=== PATIENT | female | born 1990 | race Caucasian/White ===

== ENCOUNTER 2016-08-01 10:35 | Outpatient (CLI) | payer OTHER ==
[~2016-08-01] VITALS: Ht 172.7 cm; Wt 88.0 kg
[~2016-08-01 10:35] MED LIST: DOCU100C37 PO; IBUP-1780 PO; NITR100C10 PO; ONDN4T PO; OXYC-465 PO; PREN1TAB79 PO; PROM25TA14 PO
[2016-08-01 10:45] VITALS: BP 118/76
[2016-08-01] MEDS ORDERED: PREN-37 PO (10:53)
[2016-08-01] MEDS ORDERED: FLU TRIvalent (5 YOA+) 2016-17 (AFLURIA) 0.5 ML IM ONE (11:15)
[2016-08-01 11:16] LABS: BILIRUBIN,URINE NEGATIVE (NEGATIVE); KETONES,URINE NEGATIVE (NEGATIVE); LEUKOCYTE ESTERASE ,URINE 3+ (NEGATIVE); NITRITE,URINE NEGATIVE (NEGATIVE); PH,URINE 6.5 (5-9); PROTEIN,URINE 1+ (NEGATIVE); UROBILINOGEN,URINE NORMAL (NORMAL)
[2016-08-01 11:38] LABS: SQUAMOUS EPITHELIAL CELL,UR 25-50 /HPF
--- NOTE | 2016-08-01 11:55 | Progress Note-Standard ---
Standard Progress Note Progress Notes/Assess & Plan Progress/Assessment & Plan Patient seen today in L and D triage for 3 day complaint of vaginal leakage of fluid. Denies VB, Ctxs. Reports + FM. No other concerns voiced today. Patient gives no history of PTL or delivery. Vital Sign - Last 24 Hours 08/01/16 10:45 Temp 97.2 Pulse 104 Resp 18 B/P (MAP) 118/76 O2 Delivery Room Air Laboratory Tests Test 08/01/16 11:00 Range/Units Urine Color YELLOW Urine Clarity SLIGHTLY CLOUDY Urine pH 6.5 5-9 Urine Specific [place] 1.015 L 1.016-1.022 Urine Protein 1+ H NEGATIVE Urine Glucose (UA) NEGATIVE NEGATIVE Urine Ketones NEGATIVE NEGATIVE Urine Nitrite NEGATIVE NEGATIVE Urine Bilirubin NEGATIVE NEGATIVE Urine Urobilinogen NORMAL NORMAL MG/DL Urine Leukocyte Esterase 3+ H NEGATIVE Urine RBC (Auto) NEGATIVE NEGATIVE Urine RBC RARE /HPF Urine WBC 10-25 H /HPF Urine Squamous Epithelial Cells 25-50 H /HPF Urine Crystals NONE /LPF Urine Bacteria MODERATE H /HPF Urine Casts NONE /LPF Urine Mucus SMALL H /LPF Urine Culture Indicated NO SVE: closed/ thick/ -3 Nitrazine negative + clue cells on wet prep NST reactive: BL 135 moderate variability + accels no decels, no contractions Diagnosis: 25 yo @ 32 weeks Bacterial vaginosis Vaginal discharge P: Treating patient with Flagyl 500 mg BID x 5 days Keep scheduled follow up with Dr. Park PTL precautions reviewed. VIKAS PLATT DO Aug 01, 2016 11:55 am
[2016-09-11] MEDS ORDERED: DOCU-143 PO (21:04)
[2016-09-11] MEDS ORDERED: IBUP-1773 PO (21:04)
== END 2016-08-01 11:35 | disposition home or self-care (01) ==
LOC: DELPENDDIS → LDRP 10:35 → WSo 10:35
PROVIDERS: ATTEND Obstetrics & Gynecology
DX: O99.89 Other specified diseases and conditions complicating pregnancy, childbirth and the puerperium (principal); N76.0 Acute vaginitis; Z3A.32 32 weeks gestation of pregnancy
CPT/HCPCS: 81000; 87088; 87210; 99214

== ENCOUNTER 2016-08-21 09:57 | Outpatient (CLI) | payer OTHER ==
[~2016-08-21] VITALS: Ht 172.7 cm; Wt 90.3 kg
[2016-08-21 09:45] VITALS: BP 124/73
[~2016-08-21 09:57] MED LIST changes: +PREN-37 PO
[2016-08-21] MEDS ORDERED: AMPICILLIN INJECTION 2,000 MG in NS (IVPB) 50 ML IV SCH (10:01)
[2016-08-21] MEDS ORDERED: BETAMETHASONE ACE/NA PHOS 6 MG/ML (CELESTONE SOLUSPAN) ONE (10:02)
[2016-08-21] MEDS ORDERED: AMPICILLIN 2000 MG INJECTION (IM/IV) ONE (10:03)
[2016-08-21] MEDS ORDERED: NS (IVPB) 50 ML ONE (10:04)
[2016-08-21] MEDS ORDERED: BETAMETHASONE ACE/NA PHOS 6 MG/ML (CELESTONE SOLUSPAN) IM SCH (10:08)
[2016-08-21] MEDS ORDERED: LACTATED RINGERS 1,000 ML IV ONE (10:15)
[2016-08-21] MEDS ORDERED: fluCOnazole (DIFLUCAN) 100 MG TAB PO NR (10:19)
[2016-08-21 10:35] VITALS: BP 118/70
[2016-08-21] MEDS ORDERED: LACTATED RINGERS 1,000 ML IV SCH (11:30)
--- NOTE | 2016-08-21 11:52 | Diagnostic Imaging Report ---
INDICATION: possible leaking fluid COMPARISON: None available.. Biophysical Profile Score: Movement: 2 Breathin Tone: 2 Fluid: 2 Total: 12/10 Heart Rate: 132 BPM Presentation is cephalic. Placenta is anterior in location. PRESTON is 9.8cm. The single largest vertical pocket is 3.0 cm. IMPRESSION: Normal Biophysical Profile Score. Dictated by: Dictated on workstation # [id number]
--- NOTE | 2016-08-21 12:50 | History & Physical-OB ---
OB - Chief Complaint & HPI Date Date of Admission: Date of Admission: Chief Complaint/History OB-Reason for Admission/Chief: Hx : 2 Hx Para: 1 Expected Date of Delivery: October 01, 2016 Gestational Age in Weeks: 34 Gestational Age in Days: 1 Other reason for admission: Cass is a 26 y/o @ 34w1d here for contractions, advanced cervical dilatation, r/o PTL. Cass reports for the past week she's noted painful contractions. They were especially painful last night. She then had a gush of fluid as though her water broke (had this about 2 weeks ago and was r/o for rupture and dx with BV by instructional support specialist physician). No bleeding. Fetus is active. c/b GBSuria, otherwise uncomplicated. Last delivery was IOL @ 38 wga. History of Labs O+ Antibody neg RI Hep B/C neg/neg RPR NR GC/CT neg/neg HIV neg GBSuria Allergies and Home Medications Allergies Coded Allergies: Sulfa (Sulfonamide Antibiotics) (Unverified Allergy, Mild, RASH, 12/29/14) Home Medications Vit/Iron Fumarate/FA 1 Each Tablet, 1 EACH PO DAILY, (Reported) OB - History Hx of Present Care: Yes Ultrasounds: Normal mid trimester US Obstetrical Complications: Other (GBSuria) Medical Complications: None Information Induced Hypertension: Yes (first delivery reports BP was elevated) Maternal Gestational Diabetes: No Hemorrhage: No Obstetrical History Hx : 2 Hx Para: 1 Delivery History Hx Blood Disorders: No Patient Past Medical History non-contributory Social History/Family History HIV/AIDS: No Recent Infectious Disease Expo: No Sexually Transmitted Disease: No Alcohol Use: Denies Use Recreational Drug Use: No Smoking Cessation: Never smoker Immunizations Hepatitis A: No Hepatitis B: No Tetanus Booster (TDap): Less than 5yrs Rubella: immune RPR/VDRL: Negative GBS Status: Positive HBsAG: Negative OB - Admission Exam Physical Exam Vitals: Vital Signs 08/21/16 09:45 Temp 97.6 Pulse 106 Resp 18 B/P (MAP) 124/73 Pulse Ox 98 O2 Delivery Room Air HEENT: NCAT Heart: Rhythm Normal Lungs: Clear Abdomen: Gravid Extremities: Normal Reflexes: Normal Cervical Dilatation: 3cm Effacement: 75% Station: -2 Membranes: Intact Heart Rate: 140's Accelerations: Accelerations Present Decelerations: No Decelerations Short Term Variability: Present Contractions on Admission: None OB - Assessment/Plan/Diagnosis Plan Other Plan 26 y/o @ 34w1d with contractions, advanced cervical dilatation, threatened labor. GBSuria SVE in clinic around 0930 - /-2, no change from that exam at 1230. Will stop IVF (given a bolus and then maintenance fluids), allow Cass to eat. Stop ampicillin (was started on admission) Received BTMZ at 1015. If discharged, will make appt for her to receive second dose tomorrow. Will recheck SVE in a couple hours - if no change and no pain, allow to d/c home with strict return precautions. She is aware of GBS+ status and need to treat that. BPP 8/8 (10cm PRESTON), not ruptured on exam in clinic today, did not repeat SSE on hospitalization KERWIN AVALOS MD Aug 21, 2016 12:50
[2016-08-21] MEDS ORDERED: AMPICILLIN INJECTION 1,000 MG in NS (IVPB) 50 ML IV SCH (14:15)
[2016-09-11] MEDS ORDERED: IBUP-1773 PO (21:04)
[2016-09-11] MEDS ORDERED: DOCU-143 PO (21:04)
== END 2016-08-21 15:45 | disposition home or self-care (01) ==
LOC: WSo 09:57 → LDRP 09:58 → WSo 15:45
PROVIDERS: ATTEND Obstetrics & Gynecology
DX: O47.03 False labor before 37 completed weeks of gestation, third trimester (principal); O99.820 Streptococcus B carrier state complicating pregnancy; Z3A.34 34 weeks gestation of pregnancy
CPT/HCPCS: 76805; 76819; 96361; 96372; 96374; 99214

== ENCOUNTER 2016-09-05 18:45 | Outpatient (CLI) | payer OTHER ==
[~2016-09-05] VITALS: Ht 172.7 cm; Wt 90.9 kg
[2016-09-05 19:13] VITALS: BP 123/83
[2016-09-05 20:18] LABS: BILIRUBIN,URINE NEGATIVE (NEGATIVE); KETONES,URINE NEGATIVE (NEGATIVE); LEUKOCYTE ESTERASE ,URINE 3+ (NEGATIVE); NITRITE,URINE NEGATIVE (NEGATIVE); PH,URINE 7 (5-9); PROTEIN,URINE NEGATIVE (NEGATIVE); UROBILINOGEN,URINE NORMAL (NORMAL)
[2016-09-05 20:26] LABS: WBC,URINE 25-50 /HPF
[2016-09-05] MEDS ORDERED: CEPH-507 PO (20:35)
--- NOTE | 2016-09-06 13:15 | Physician Query-Final Dx ---
JC DECKER 09/06/16 1315: Clinic Account Progress/Dx Physician Query: Please give diagnosis Date of Service September 05, 2016 at 18:45 VIKAS PLATT DO 09/09/16 0558: Clinic Account Progress/Dx DIAGNOSIS: Diagnosis 37 week iup decreased movement JC DECKER September 06, 2016 13:15 VIKAS PLATT DO September 09, 2016 05:58
[2016-09-11] MEDS ORDERED: IBUP-1773 PO (21:04)
[2016-09-11] MEDS ORDERED: DOCU-143 PO (21:04)
== END 2016-09-05 20:45 | disposition home or self-care (01) ==
LOC: WSo 18:45 → LDRP 18:45 → WSo 20:45
PROVIDERS: ATTEND Obstetrics & Gynecology
DX: O36.8130 Decreased fetal movements, third trimester, not applicable or unspecified (principal); Z3A.37 37 weeks gestation of pregnancy
CPT/HCPCS: 81000; 87088; 99213